=== PATIENT | female | born 1970 | race Caucasian/White ===

== ENCOUNTER 2016-08-28 10:42 | Outpatient (CLI) | payer MEDICAID, OTHER | END 2016-08-28 10:43 | disposition home or self-care (01) | DX: B18.2 Chronic viral hepatitis C (principal) ==

== ENCOUNTER 2017-07-08 17:27 | Outpatient (CLI) | payer OTHER ==
--- NOTE | 2017-07-09 12:04 | Ultrasound Report ---
PELVIC ULTRASOUND: 07/08/2017 CLINICAL INDICATION: Excessive menstruation. TECHNIQUE: Transabdominal pelvic ultrasound performed for global evaluation. Transvaginal pelvic ultrasound performed for detailed evaluation. Real-time scanning performed and static images obtained. FINDINGS: The uterus is anteverted, measuring 11.1 x 6.6 x 4.9 cm. The endometrium measures 14 mm, and there is an echogenic nodule in the fundal endometrium, measuring 1.9 x 0.8 cm, suspicious for a fundal polyp. A 2.8 x 2.5 x 2.3 cm leiomyoma is noted in the left fundal subserosal myometrium. The right ovary measures 3.5 x 2.3 x 2.1 cm, and demonstrates follicles. The left ovary measures 2.6 x 2.2 x 1.7 cm, and demonstrates follicles. No free fluid is present. IMPRESSION: 1. LIKELY 1.9 CM FUNDAL ENDOMETRIAL POLYP. 2. A 2.8 CM LEFT SUBSEROSAL LEIOMYOMA. TD: 07/09/2017 12:03
== END 2017-07-08 17:28 | disposition home or self-care (01) ==
LOC: DI 17:27
PROVIDERS: ATTEND Internal Medicine
DX: D26.1 Other benign neoplasm of corpus uteri (principal); D25.2 Subserosal leiomyoma of uterus
CPT/HCPCS: 76830; 76856

== ENCOUNTER 2017-07-09 09:03 | Outpatient (CLI) | payer OTHER ==
[2017-07-09 17:44] LABS: BASOPHILS # (AUTO) 0.1 10^3/uL (0.0-0.1); BASOPHILS % (AUTO) 0.9 %; EOSINOPHILS # (AUTO) 0.3 10^3/uL (0.0-0.7); EOSINOPHILS % (AUTO) 3.4 %; LYMPHOCYTES # (AUTO) 2.6 10^3/uL (1.5-3.5); LYMPHOCYTES % (AUTO) 26.4 %; MEAN CORPUSCULAR HEMOGLOBIN 27.5 pg (27.0-31.0); MEAN CORPUSCULAR HGB CONC 32.7 g/dL (32.0-36.0); MEAN CORPUSCULAR VOLUME 84.2 fL (81.0-99.0); MEAN PLATELET VOLUME 9.6 fL (7.9-10.8); MONOCYTES # (AUTO) 0.7 10^3/uL (0.0-1.0); MONOCYTES % (AUTO) 6.9 %; NEUTROPHILS # (AUTO) 6.2 10^3/uL (1.5-6.6); NEUTROPHILS % (AUTO) 62.4 %; PLT - PLATELET COUNT 246 10^3/uL (130-450); RED BLOOD COUNT 4.74 10^6/uL (4.20-5.40); RED CELL DISTRIBUTION WIDTH 15.9 % (12.0-15.0); WHITE BLOOD COUNT 9.9 x10^3/uL (4.8-10.8)
[2017-07-09 18:26] LABS: ALBUMIN 3.9 g/dL (3.2-5.5); ALBUMIN/GLOBULIN RATIO 1.4 (1.0-2.2); ALKALINE PHOSPHATASE 84 IU/L (42-121); ALT ALANINE AMINOTRANSFERASE 13 IU/L (10-60); AST ASPARTATE AMINOTRANSFERASE 17 IU/L (10-42); BILIRUBIN,TOTAL 0.2 mg/dL (0.2-1.0); BUN - BLOOD UREA NITROGEN 13 mg/dL (6-20); CALCIUM 8.7 mg/dL (8.5-10.3); CARBON DIOXIDE - CO2 22 mmol/L (21-32); CHLORIDE 108 mmol/L (101-111); CHOL/HDL RATIO 4.5 (<4.4); CHOLESTEROL 184 mg/dL; CREATININE 0.7 mg/dL (0.4-1.0); GFR - MDRD 89 (>89); GLUCOSE 91 mg/dL (70-100); HDL CHOLESTEROL 41 mg/dL; LDL CHOLESTEROL,CALCULATED 110 mg/dL; LDL/HDL RATIO 2.7 (<4.4); SODIUM 135 mmol/L (135-145); TOTAL PROTEIN 6.7 g/dL (6.7-8.2); VLDL CHOLESTEROL 33 mg/dL
[2017-07-09 18:53] LABS: HB2 TOTAL 14.3 g/dL; HEMOGLOBIN A1C 0.53 g/dL; HEMOGLOBIN A1C % 5.5 % (4.6-6.2)
== END 2017-07-09 09:04 | disposition home or self-care (01) ==
LOC: LAB.F 09:03
PROVIDERS: ATTEND Internal Medicine
DX: Z83.3 Family history of diabetes mellitus (principal); N92.0 Excessive and frequent menstruation with regular cycle; N64.4 Mastodynia; Z13.6 Encounter for screening for cardiovascular disorders
CPT/HCPCS: 36415; 80053; 80061; 83036; 83721; 84443; 85025

== ENCOUNTER 2017-07-21 08:36 | Outpatient (CLI) | payer OTHER ==
--- NOTE | 2017-07-21 15:28 | Mammography Report ---
DIGITAL DIAGNOSTIC BILATERAL MAMMOGRAM: 07/21/2017 CLINICAL INDICATION: Diffuse bilateral breast pain. TECHNIQUE: Bilateral CC, MLO, true lateral views. COMPARISON: 08/06/2015, 12/16/2010, 06/03/2010, 05/21/2010, 04/28/2010. FINDINGS: The breasts again demonstrate heterogeneously dense fibroglandular parenchyma bilaterally. Coarse, typically benign calcifications are present. Biopsy changes in the right upper central posterior breast are stable. No suspicious masses, clustered microcalcifications, or regions of architectural distortion are identified. IMPRESSION: BENIGN FINDINGS. RECOMMENDATION: ROUTINE ANNUAL SCREENING UNLESS OTHERWISE CLINICALLY INDICATED. BIRADS CATEGORY 2-BENIGN FINDINGS. STANDARD QUALIFYING STATEMENTS: 1. This examination was reviewed with the aid of Computer-Aided Detection (CAD). 2. A negative or benign imaging report should not delay biopsy if clinically suspicious findings are present. Consider surgical consultation if warranted. More than 5% of cancers are not identified by imaging. 3. Dense breasts may obscure an underlying neoplasm. TD: 07/21/2017 15:27
== END 2017-07-21 08:37 | disposition home or self-care (01) ==
LOC: DI 08:36
PROVIDERS: ATTEND Internal Medicine
DX: N64.4 Mastodynia (principal); N92.1 Excessive and frequent menstruation with irregular cycle
CPT/HCPCS: 77066; 87491; 87591

== ENCOUNTER 2017-07-21 16:43 | Outpatient (CLI) | payer OTHER | END 2017-07-21 16:44 | disposition home or self-care (01) | LOC: LAB.R 16:43 | PROVIDERS: ATTEND Registered Nurse | DX: N92.1 Excessive and frequent menstruation with irregular cycle (principal) | CPT/HCPCS: 87491; 87591 ==

== ENCOUNTER 2017-08-06 09:19 | Outpatient (CLI) | payer OTHER ==
[2017-08-06 17:16] LABS: BILIRUBIN,URINE NEGATIVE (NEGATIVE); GLUCOSE, URINE (UA) NEGATIVE (NEGATIVE); KETONES,URINE (UA) NEGATIVE (NEGATIVE); LEUKOCYTE ESTERASE, URINE NEGATIVE (NEGATIVE); NITRITE,URINE NEGATIVE (NEGATIVE); OCCULT BLOOD,URINE MODERATE (NEGATIVE); PROTEIN,URINE NEGATIVE (NEGATIVE); UROBILINOGEN,URINE 0.2 (NORMAL) E.U./dL (NORMAL)
[2017-08-06 17:26] LABS: CLARITY,URINE CLEAR (CLEAR)
[2017-08-06 17:37] LABS: BACTERIA,URINE Few /HPF (None Seen); RBC,URINE 0-5 /HPF (0-5); SQUAMOUS EPITHELIAL CELL,UR MANY Squamous (<= Few)
== END 2017-08-06 09:20 | disposition home or self-care (01) ==
LOC: LAB.F 09:19
PROVIDERS: ATTEND Obstetrics & Gynecology
DX: N92.1 Excessive and frequent menstruation with irregular cycle (principal); N39.3 Stress incontinence (female) (male)
CPT/HCPCS: 81001

== ENCOUNTER 2017-09-06 10:25 | Outpatient (CLI) | payer OTHER ==
[2017-09-06 11:08] LABS: CALCIUM 8.9 mg/dL (8.5-10.3); CREATININE 0.8 mg/dL (0.4-1.0)
[2017-09-06 11:14] LABS: BASOPHILS # (AUTO) 0.1 10^3/uL (0.0-0.1); BASOPHILS % (AUTO) 1.4 %; EOSINOPHILS # (AUTO) 0.4 10^3/uL (0.0-0.7); EOSINOPHILS % (AUTO) 4.9 %; HGB - HEMOGLOBIN 13.7 g/dL (12.0-16.0); LYMPHOCYTES # (AUTO) 2.7 10^3/uL (1.5-3.5); LYMPHOCYTES % (AUTO) 34.7 %; MEAN CORPUSCULAR HEMOGLOBIN 28.6 pg (27.0-31.0); MEAN CORPUSCULAR HGB CONC 33.7 g/dL (32.0-36.0); MEAN CORPUSCULAR VOLUME 84.8 fL (81.0-99.0); MEAN PLATELET VOLUME 8.7 fL (7.9-10.8); MONOCYTES # (AUTO) 0.6 10^3/uL (0.0-1.0); MONOCYTES % (AUTO) 7.4 %; NEUTROPHILS # (AUTO) 4.1 10^3/uL (1.5-6.6); NEUTROPHILS % (AUTO) 51.6 %; PLT - PLATELET COUNT 252 10^3/uL (130-450); RED CELL DISTRIBUTION WIDTH 15.2 % (12.0-15.0); WHITE BLOOD COUNT 7.9 x10^3/uL (4.8-10.8)
== END 2017-09-06 10:26 | disposition home or self-care (01) ==
LOC: LAB 10:25
PROVIDERS: ATTEND Obstetrics & Gynecology
DX: Z01.812 Encounter for preprocedural laboratory examination (principal); N92.0 Excessive and frequent menstruation with regular cycle; D25.1 Intramural leiomyoma of uterus; N39.3 Stress incontinence (female) (male)
CPT/HCPCS: 36415; 80048; 85025; 86850; 86900; 86901

== ENCOUNTER 2017-09-08 06:11 | Day surgery (SDC) | payer OTHER ==
--- NOTE | 2017-09-07 09:19 | PREOP HISTORY & PHYSICAL ---
DATE OF SERVICE: 09/03/2017 Physician: Erasmo Gaxiola MD PREOPERATIVE H AND P on 09/03/2017 FOR ANTICIPATED DATE OF PROCEDURE: 09/08/2017 IDENTIFICATION: Patient is a 47-year-old G5, P3, AB2 female whose last menstrual period started on 08/05/2017, the time of her endometrial biopsy. CHIEF COMPLAINT: Vaginal bleeding, painful periods, as well as stress urinary incontinence. HISTORY OF PRESENT ILLNESS: Patient states over the last 3 to 5 years, she has had difficulty with very heavy menstrual cycles. She states these are regular and have come in a predictable fashion. She flows for 7 days; however, she will have 4 days in which she bleeds very heavy. She will need to change a pad or a tampon an hour to hour and a half basis. She will use both pads and tampons while she was doing her work. She will occasionally sleep with a towel because of her breakthrough bleeding. She may be up anywhere from 2-3 times per night. She has a history of anemia from her bleeding; however, she was never having transfusions. Currently not taking iron. She does give a history of having a fibroid uterus. She has had an endometrial biopsy, which has been noted to be benign. She also complains of pain with her cycles. She states this is anywhere from roughly 5/10. She states it makes her somewhat irritable. She does use occasional Midol for her pain. She also complains of stress urinary incontinence when she sneezes, laughs and coughs. It also occurs when she bends over. She uses a pad as well as a liner on a daily basis to protect her from this. She has had a tubal ligation in the past. She is currently being seen by Dr. Erasmo Meraz and is scheduled for a laparoscopically assisted vaginal hysterectomy with bilateral salpingectomy, as well as sling procedure. MEDICAL HISTORY: Patient denies any hypertensive, diabetic, or cardiac disease. MEDICATIONS: She is currently not taking any medications. Does do occasional Tylenol. PAST SURGICAL HISTORY: Positive for tubal ligation. She has also had a right breast lump removed in 1991, as well as tonsillectomy and adenoidectomy as a child. She has had 2 D and Cs in the past. ALLERGIES: SULFA, WHICH CAUSES FEVER. HABITS: Patient smokes 10 cigarettes per day. Drinks alcohol only occasionally. SOCIAL HISTORY: Patient lives with a partner for the last 5 years. 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 FAMILY HISTORY: Strongly positive for diabetes both in her maternal grandmother, as well as a cousin. She has a paternal uncle also with diabetes. She has a maternal grandfather with heart attack as well as emphysema, who was a heavy smoker. She denies any family history of breast or ovarian cancer at this time. REVIEW OF SYSTEMS: Negative for anything with the exception of a chronic smoker's cough. PHYSICAL EXAMINATION GENERAL: Patient is a well-developed, well-nourished white female. She is in no acute distress at this time. VITAL SIGNS: Blood pressure is 120/80. She has a BMI of 31.6. HEENT: Pupils are equal, round. Extraocular muscles are intact. Thyroid is not palpably enlarged. Mouth is clear. HEART: Regular rate and rhythm without murmurs. LUNGS: Lung colon are clear without rales or wheezes. BACK: No spinal or CVA tenderness noted. ABDOMEN: Mildly corpulent. There is evidence of a previous laparoscopic scar from her tubal ligation. There was no rebound or any other masses. PELVIC: Exam was previously performed by Dr. Erasmo Meraz. He felt that the uterus felt somewhat globular in its configuration. IMPRESSION 1. A 47-year-old G5, P3 female with a 5-year history of menorrhagia and dysmenorrhea. 2. She also has stress urinary incontinence, which affects her life. PLAN: At this particular time, the patient is scheduled for a laparoscopically assisted vaginal hysterectomy with bilateral salpingectomy and suburethral sling. Risks and benefits were explained to the patient including those, but not limited to bleeding, infection, injury to pelvic organs, which include the uterus, tubes, ovaries, bowel, bladder, and ureters. She is aware of the potential of DVT with PE as well as postoperative adhesions, which could cause pain as well as bowel obstruction. She is also aware that she may need to go home with a Gurrola catheter in place because of her sling. She was also aware of the possibility of needing to do an open procedure if the laparoscopy is not sufficient to complete her operation. TD: 09/03/2017 20:42
[2017-09-08] MEDS ORDERED: ceFAZolin 2 GM/50 ML 2 GM/50 ML BAG IV ONE (06:34)
[2017-09-08 06:39] VITALS: BP 133/85
[2017-09-08] MEDS ORDERED: SCOPOLAMINE PATCH TOP ONE (06:41)
[2017-09-08] MEDS ORDERED: LACTATED RINGERS 1,000 ML IV ONE ×3 (06:54→11:59)
[2017-09-08] MEDS ORDERED: BUPIVACAINE 0.5%-EPI 1:200000 PF 10 ML VIAL ONE ×2 (07:42→09:55)
[2017-09-08] MEDS ORDERED: GLYCOPYRROLATE 1 MG/5 ML VIAL IVP ONE (08:30)
[2017-09-08] MEDS ORDERED: DEXAMETHASONE 4 MG/ML VIAL IVP ONE (08:30)
[2017-09-08] MEDS ORDERED: ROCURONIUM 50 MG/5 ML VIAL IVP ONE (08:30)
[2017-09-08] MEDS ORDERED: ACETAMINOPHEN 1,000 MG/100 ML 100 ML IV ONE ×2 (08:30→08:38)
[2017-09-08] MEDS ORDERED: KETOROLAC 30 MG/ML VIAL IVP ONE (08:30)
[2017-09-08] MEDS ORDERED: PHENYLEPHRINE 10 MG/ML VIAL IV ONE (08:30)
[2017-09-08] MEDS ORDERED: fentaNYL 250 MCG/5 ML VIAL IVP ONE (08:30)
[2017-09-08] MEDS ORDERED: ONDANSETRON 4 MG/2 ML VIAL IVP ONE (08:30)
[2017-09-08] MEDS ORDERED: SUCCINYLCHOLINE 200 MG/10 ML VIAL IVP ONE (08:30)
[2017-09-08] MEDS ORDERED: MIDAZOLAM 2 MG/2 ML VIAL IVP ONE (08:30)
[2017-09-08] MEDS ORDERED: LIDOCAINE-MPF 2% 5 ML VIAL IM ONE (08:30)
[2017-09-08] MEDS ORDERED: PROPOFOL 200 MG/20 ML VIAL IVP ONE (08:30)
[2017-09-08] MEDS ORDERED: BUPIVACAINE 0.5%-EPI 1:200000 PF 30 ML VIAL SUBQ ONE (08:37)
--- NOTE | 2017-09-08 10:20 | OPERATIVE REPORT ---
Operative Report - General Procedure Date: 09/08/17 Planned Procedure: Laparoscopic assisted vaginal hysterectomy; bilateral salpingectomy; subure Pre-Op Diagnosis: Uterine fibroids associated with abnormal bleeding and pain; stress urinary Procedure Performed: Laparoscopic assisted vaginal hysterectomy; suburethral sling; right salpingo- oophorectomy; left salpingectomy Post Op Diagnosis: Growth on right ovary; same as above - Procedure Note Primary Surgeon: Erasmo Meraz MD Secondary Surgeon: Erasmo Gaxiola MD Anesthesia Provider: Macario Dowell, certified nurse pediatric dental assistant Anesthesia Technique: General ET tube Pathology: Uterus, tubes, right ovary IV Fluids (mL): 1,000 Estimated Blood Loss (mL): 20 Urine Output (mL): 250 Drain/Tube Type: Other (Gurrola catheter) Complications: None
--- NOTE | 2017-09-08 11:37 | OPERATIVE REPORT ---
DATE OF SERVICE: 09/08/2017 Physician: Erasmo Meraz MD PREOPERATIVE DIAGNOSES 1. Uterine leiomyomata associated with abnormal bleeding and pain. 2. Stress urinary incontinence. POSTOPERATIVE DIAGNOSES 1. Uterine leiomyomata associated with abnormal bleeding and pain. 2. Stress urinary incontinence. 3. Exophytic growth on right ovary. Await pathology. 4. Cystitis cystica. PROCEDURES 1. Laparoscopic-assisted vaginal hysterectomy. 2. Suburethral sling (MiniArc). 3. Right salpingo-oophorectomy. 4. Left salpingectomy. 5. Modified Lerma. SURGEON: Erasmo Meraz MD, FACOG, FICS RESTAURANT MAINTENANCE TECHNICIAN: Earsmo Gaxiola MD, FACOG ANESTHESIA: Edwardo Thomas and Macario Garcia, certified nurse shrimping boat captain. ANESTHESIA TYPE: General with ET tube. PATHOLOGY: Uterus, tubes, and ovaries sent. INTRAVENOUS FLUIDS: Approximately 1000. ESTIMATED BLOOD LOSS: 20 mL or less. URINE OUTPUT: Approximately 250, clear urine in the tube. COMPLICATIONS: None. FINDINGS: Exam under anesthesia finds a bulbous cervix with retroverted, retroflexed enlarged uterus sounding to about 8 cm size. Laparoscopic view confirms the same. The left ovary has multiple simple cysts. Right ovary has a simple cyst plus an exophytic solid nodule. Nodule was not thought to be cancerous, but prompted right oophorectomy. Both tubes appeared to be normal. The uterus was bulky with fibroid growth apparent. Cystoscopy confirms right and left ureter open and we can see sling effect at mid urethra on urethroscopy. There was a thorough inspection of the bladder since she was a smoker. There was cystitis cystica, but no evidence of tumor. Prior to the procedure, I met her and her and explained the diagnosis as the indications for the planned procedures. The planned procedures were vaginal hysterectomy with bilateral salpingectomy and suburethral sling. The relative mechanics and intended benefits were first explained. She understands that hysterectomy will most surely remedy her bleeding, but may not remedy all components of pelvic pain. With the suburethral sling, the mesh material was explained as well as success rate was quoted to be around 90% . She understands all surgery carries the risk of hemorrhage, transfusion, infection, damage to adjacent viscera and, in the case of artificial sling, tissue erosion. All questions were answered and informed consent was signed. TECHNIQUE: The awake patient was brought to the operating room and placed in the supine position for administration of anesthesia. She was uneventfully induced and intubated. She then was moved to the low dorsal lithotomy position on mobile stirrups. She was prepped and draped in the customary sterile fashion. A timeout briefing was done per protocol. A clamshell speculum was inserted and a HUMI uterine manipulator was inserted. The HUMI insertion was somewhat difficult due to the distortion of the inner cavity secondary to her fibroids. Gurrola catheter was placed. A small incision was placed under the umbilical skin fold and the 5 mm Visiport trocar inserted into the abdominal cavity uneventfully. The abdomen was then insufflated with CO2 under 12 mm of gas. Right and left operating ports were placed in the lower quadrants. The abdomen was assessed. Reference photos. Starting on the left-hand side, the tube was tented away from the ovary and superiorly in a medial direction. The tubal mesentery then was desiccated and divided in a serial fashion. Next, the uteroovarian ligament was desiccated and divided. Following that, the round ligament was desiccated and divided. The flaps of the broad ligament were desiccated and divided, and the uterine vessels skeletonized. We developed the anterior bladder fold with LigaSure. The uterine vessels then were doubly desiccated and divided. There was a small bleeder underneath the bladder flap on the left-hand side that was desiccated. Next, on inspection of the right-hand side, it was decided that it was safest to sacrifice the ovary. The right ovarian vessels and infundibulopelvic ligament were desiccated and divided. Next, the round ligament was desiccated and divided. LigaSure was then used to develop the bladder flap. We then converted to the vaginal phase. All gas was removed. The patient's legs were then placed into the high dorsal lithotomy position. Weighted speculum was placed. The cervix was injected with small aliquots of Marcaine with epinephrine to form a liquid tourniquet. Using Bovie pencil, the cervix was circumscribed. The vaginal mucosa was advanced back up to reveal the uterosacral ligaments. The uterosacral ligaments were clamped, cut, and transfixed with 0 Vicryl. We advanced superiorly to the region of the laparoscopic dissection. At this point, the uterus was uneventfully slid through the colpotomy and sent to pathology. Reference photo of the uterus. The pelvic peritoneum was then pursestringed with 0 chromic. The uterosacral ligaments were then sutured into the vaginal cuff corners. In turn the uterosacral ligaments were plicated together in the midline to perform a modified Lerma's. Vaginal mucosa then was closed with a running stitch of 0 chromic. The abdomen was then reinsufflated with CO2 gas and inspected. All operative sites were inspected and found to be hemostatically secure. Reference photos. At this point, we moved towards sling. The Gurrola was deflated and removed. At mid urethra and towards the bladder neck, a 1.5 cm incision was made under the urethra. Then, using combination of blunt and sharp dissection, a pocket was formed on either side tracking upward at a 45-degree angle towards the internal margin of the obturator internus. Then, the MiniArc was brought to the field and a loaded. Rechecked all landmarks: Pubis, limits of the obturator foramen, and pubic bone. The MiniArc applicator then was guided through the pocket and behind the pubic bone at the spot at the medial margin of the obturator internus. It was then driven into the obturator internus and an excellent application of the dart was felt. This process then was repeated on the right-hand side. At the end, the sling was without tension and in contact the urethra without compression. MiniArc applicator was then removed. We performed cystoscopy that ensured there was a sling affect, but it was not over aggressive. Ureters were confirmed to be functional, and the entire interior of the bladder assessed. At this point, redundant vaginal mucosa was trimmed. The colpotomy wound was closed with a running stitch of 2-0 Vicryl. After laparoscopy was done, all trocars were removed. Skin was closed with interrupted subcuticular stitches of 4-0 Monocryl and dressed with Dermabond. The patient was uneventfully awakened from general anesthesia and extubated. She went to the recovery room in good condition. MEDICATIONS: Ancef 2 grams. TD: 09/08/2017 11:36 [facility]NERSMac[facility]
[2017-09-08] MEDS ORDERED: KETOROLAC 30 MG/ML VIAL IVP SCH (12:00)
[2017-09-08] MEDS ORDERED: HYDROmorphone 1 MG/ML CARPUJECT IVP PRN (12:01)
[2017-09-08] MEDS ORDERED: ONDANSETRON 4 MG/2 ML VIAL IVP PRN (12:01)
[2017-09-08] MEDS: LACTATED RINGERS 1,000 ML IV SCH ×2 (14:58→20:58)
[2017-09-08] MEDS: oxyCOD/ACETAMIN 5 MG/325 MG TABLET PO PRN (20:26)
[2017-09-09] MEDS: oxyCOD/ACETAMIN 5 MG/325 MG TABLET PO PRN ×2 (02:49→08:03)
[2017-09-09] MEDS: LACTATED RINGERS 1,000 ML IV SCH (05:10)
[2017-09-09] MEDS ORDERED: SODIUM CHLORIDE FLUSH 0.9% 10 ML SYRINGE ONE ×2 (08:10→08:19)
--- NOTE | 2017-09-09 08:53 | DISCHARGE SUMMARY ---
Physician: Erasmo Meraz MD DATE OF ADMISSION: 09/08/2017 DATE OF DISCHARGE: 09/09/2017 EXTENDED SAME DAY SURGERY STAY PROCEDURE: Laparoscopic assisted vaginal hysterectomy; MiniArc suburethral sling; bilateral salpingectomy; right oophorectomy; cystoscopy; modified Lerma culdoplasty. COMPLICATIONS: None. DIAGNOSIS: Severe dysmenorrhea with abnormal uterine bleeding; uterine leiomyoma; stress urinary incontinence. HISTORY: The patient states that she has had 3-5 years of painful and heavy menses. Flow exceeds 7 days, 4 of which are with clots. The bleeding is quite severe and disruptive, reference H and P. She has a history of anemia. Additionally, she reports stress urinary incontinence and uses a pad to protect her underclothing. The patient had an informed consent session and understands the risks and benefits of both the LAVH and sling. She wishes to conserve her ovaries if possible. HOSPITAL COURSE: The patient was admitted to same day surgery for LAVH and sling procedure, which were completed uneventfully. However, during the inspection of the abdomen, there was an exophytic growths seen on the right ovary, prompting its removal, as well as both tubes. A modified Lerma procedure was done to provide extra cuff support and postoperative cystoscopy confirmed no bladder incursions and free flow of urine from both ureters. Blood loss was low and the surgery was uncomplicated. The patient went to the recovery room in stable condition. However, she remained nauseous and painful. She was admitted for extended stay. During the extended stay, she accomplished timed voiding bladder training. Most of her residuals were around 100. She was given voiding instructions prior to discharge that included avoidance of Valsalva voiding pattern and q. 3 hour voiding attempts. Warning sign and callback instructions were given. The patient was seen on the morning of discharge and was in good spirits, eating breakfast and reporting no problems with micturition. DISCHARGE MEDICATIONS 1. Motrin 600 q.6 hours. 2. [place] 1 tab q.4 hours p.r.n. pain. 3. Colace 250 b.i.d. Followup will be in 2 weeks. TD: 09/09/2017 08:52
== END 2017-09-09 09:45 | disposition home or self-care (01) ==
LOC: SDS 06:11 → OBS 10:56 → SDS 09-09 09:45
PROVIDERS: ATTEND Obstetrics & Gynecology
PROC: 0UT7FZZ Resection of Bilateral Fallopian Tubes, Via Natural or Artificial Opening With Percutaneous Endoscopic Assistance (ICD-10-PCS; 2017-09-08)
PROC: 0TSD0ZZ Reposition Urethra, Open Approach (ICD-10-PCS; 2017-09-08)
PROC: 0UQF7ZZ Repair Cul-de-sac, Via Natural or Artificial Opening (ICD-10-PCS; 2017-09-08)
PROC: 0UT9FZZ Resection of Uterus, Via Natural or Artificial Opening With Percutaneous Endoscopic Assistance (ICD-10-PCS; principal; 2017-09-08 07:30)
PROC: 0UT0FZZ Resection of Right Ovary, Via Natural or Artificial Opening With Percutaneous Endoscopic Assistance (ICD-10-PCS; 2017-09-08 07:30)
DX: D25.1 Intramural leiomyoma of uterus (principal); N84.0 Polyp of corpus uteri; D27.0 Benign neoplasm of right ovary; N83.8 Other noninflammatory disorders of ovary, fallopian tube and broad ligament; N39.3 Stress incontinence (female) (male); N30.80 Other cystitis without hematuria; F17.210 Nicotine dependence, cigarettes, uncomplicated
CPT/HCPCS: 57288; 58552; A9270; C1771; J0131; J0330; J0690; J3010; J3490; J7120; 88307; 88311

== ENCOUNTER 2018-04-27 11:43 | Outpatient (CLI) | payer BC | END 2018-04-27 11:44 | disposition home or self-care (01) | LOC: LAB 11:43 | PROVIDERS: ATTEND Registered Nurse | DX: J20.9 Acute bronchitis, unspecified (principal) | CPT/HCPCS: 36415; 81599; 86480 ==

== ENCOUNTER 2018-04-30 10:56 | Outpatient (CLI) | payer BC ==
--- NOTE | 2018-05-01 00:56 | XRAY Report ---
Reason: BRONCHITIS ACUTE WITH BRONCHOSPASM Procedure Date: 04/30/2018 Accession Number: [id number] / [id number] Procedure: XR - Chest 2 View X-Ray CPT Code: 73667 FULL RESULT: EXAM: CHEST RADIOGRAPHY EXAM DATE: 04/30/2018 11:05 AM. CLINICAL HISTORY: Acute bronchitis with bronchospasm. COMPARISON: None. TECHNIQUE: 2 views. FINDINGS: Lungs/Pleura: No focal opacities evident. No pleural effusion. No pneumothorax. Normal volumes. Mediastinum: Heart and mediastinal contours are unremarkable. Other: No bony abnormality noted. IMPRESSION: Normal 2-view chest radiography. RADIA
== END 2018-04-30 10:57 | disposition home or self-care (01) ==
LOC: DI 10:56
PROVIDERS: ATTEND Registered Nurse
DX: J20.9 Acute bronchitis, unspecified (principal)
CPT/HCPCS: 71046

== ENCOUNTER 2020-03-08 08:03 | Outpatient (CLI) | payer BC, MEDICAID ==
[2020-03-08 15:28] LABS: BASOPHILS # (AUTO) 0.1 10^3/uL (0.0-0.1); EOSINOPHILS # (AUTO) 0.3 10^3/uL (0.0-0.7); EOSINOPHILS % (AUTO) 3.4 %; HGB - HEMOGLOBIN 14.6 g/dL (12.0-16.0); LYMPHOCYTES # (AUTO) 2.1 10^3/uL (1.5-3.5); MEAN CORPUSCULAR HEMOGLOBIN 29.3 pg (27.0-31.0); MEAN CORPUSCULAR HGB CONC 32.6 g/dL (32.0-36.0); MEAN CORPUSCULAR VOLUME 89.8 fL (81.0-99.0); MEAN PLATELET VOLUME 11.4 fL (7.9-10.8); MONOCYTES # (AUTO) 0.7 10^3/uL (0.0-1.0); MONOCYTES % (AUTO) 8.8 %; NEUTROPHILS # (AUTO) 4.2 10^3/uL (1.5-6.6); NEUTROPHILS % (AUTO) 57.3 %; PLT - PLATELET COUNT 270 10^3/uL (130-450); RED BLOOD COUNT 4.99 10^6/uL (4.20-5.40); RED CELL DISTRIBUTION WIDTH 13.8 % (12.0-15.0); WHITE BLOOD COUNT 7.4 x10^3/uL (4.8-10.8)
[2020-03-08 15:53] LABS: ALBUMIN 4.4 g/dL (3.2-5.5); ALBUMIN/GLOBULIN RATIO 1.4 (1.0-2.2); ALKALINE PHOSPHATASE 117 IU/L (42-121); ALT ALANINE AMINOTRANSFERASE 21 IU/L (10-60); AST ASPARTATE AMINOTRANSFERASE 22 IU/L (10-42); BILIRUBIN,TOTAL 0.5 mg/dL (0.2-1.0); BUN - BLOOD UREA NITROGEN 17 mg/dL (6-20); CALCIUM 9.3 mg/dL (8.5-10.3); CARBON DIOXIDE - CO2 23 mmol/L (21-32); CHLORIDE 107 mmol/L (101-111); CHOL/HDL RATIO 4.5 (<4.4); CHOLESTEROL 219 mg/dL; CREATININE 0.7 mg/dL (0.4-1.0); GLUCOSE 110 mg/dL (70-100); HDL CHOLESTEROL 49 mg/dL; LDL CHOLESTEROL,CALCULATED 137 mg/dL; LDL/HDL RATIO 2.8 (<4.4); SODIUM 138 mmol/L (135-145); TOTAL PROTEIN 7.5 g/dL (6.7-8.2); VLDL CHOLESTEROL 33 mg/dL
== END 2020-03-08 08:04 | disposition home or self-care (01) ==
LOC: LAB.S 08:03
PROVIDERS: ATTEND Family Medicine
DX: R00.2 Palpitations (principal); Z12.11 Encounter for screening for malignant neoplasm of colon
CPT/HCPCS: 36415; 80053; 80061; 82274; 83721; 84443; 85025

== ENCOUNTER 2020-08-21 09:38 | Outpatient (CLI) | payer MEDICAID ==
--- NOTE | 2020-08-22 07:45 | Mammography Report ---
BILATERAL DIGITAL SCREENING MAMMOGRAM 3D/2D: 08/21/2020 CLINICAL: Routine screening. Family history of breast cancer. Comparison is made to exams dated: 07/21/2017 mammogram, 08/06/2015 mammogram, and 12/16/2010 mammogram - [facility]. There are scattered fibroglandular elements in both breasts. No significant masses, calcifications, or other findings are seen in either breast. There has been no significant interval change. IMPRESSION: NEGATIVE There is no mammographic evidence of malignancy. A 1 year screening mammogram is recommended. This exam was interpreted at Station ID: [id number]. NOTE: For mammograms, a report in lay terms will be sent to the patient. Approximately 15% of breast malignancies will not be visualized mammographically. In the management of a palpable breast mass, a negative mammogram must not discourage biopsy of a clinically suspicious lesion. Electronically Signed By: Akin Dockery M.D., jr/stephrad:08/21/2020 16:26:28 ACR BI-RADS Category 1: Negative 3341F PARENCHYMAL PATTERN: (A) - The breast(s) demonstrate(s) scattered fibroglandular densities. BI-RADS CATEGORY: (1) - 1 RECOMMENDATION: (ANNUAL) - Recommend routine annual screening mammography. [id number] 1 year screening LATERALITY: (B)
== END 2020-08-21 09:39 | disposition home or self-care (01) ==
LOC: DI.S 09:38
DX: Z12.31 Encounter for screening mammogram for malignant neoplasm of breast (principal); Z80.3 Family history of malignant neoplasm of breast

== ENCOUNTER 2022-03-26 08:00 | Outpatient (CLI) | payer MEDICAID ==
--- NOTE | 2022-03-26 12:10 | XRAY Report ---
PROCEDURE: Shoulder 3 View RT INDICATIONS: RIGHT SHOULDER pain TECHNIQUE: 4 views of the shoulder were acquired. COMPARISON: None. FINDINGS: Bones: No acute fractures or dislocations. No suspicious bony lesions. Visualized ribs appear inta ct. Mild acromioclavicular and glenohumeral joint degenerative changes. Soft tissues: No suspicious soft tissue calcifications. IMPRESSION: 1. No acute fracture or dislocation visualized. 2. Degenerative changes of the acromioclavicular and glenohumeral joints. Reviewed by: Ed Fischer MD on 03/26/2022 12:09 PM PDT Approved by: Ed Fischer MD on 03/26/2022 12:09 PM PDT Station ID: [id number]
== END 2022-03-26 23:59 | disposition home or self-care (01) ==
LOC: DI.WOS 08:00
PROVIDERS: ATTEND Physician Assistant Surgical
DX: M19.011 Primary osteoarthritis, right shoulder (principal)

== ENCOUNTER 2022-10-15 08:57 | Outpatient (CLI) | payer MEDICAID ==
--- NOTE | 2022-10-16 11:29 | Mammography Report ---
BILATERAL DIGITAL SCREENING MAMMOGRAM 3D/2D: 10/15/2022 CLINICAL: Routine screening. Comparison is made to exams dated: 08/21/2020 mammogram, 07/21/2017 mammogram, and 08/06/2015 mammogram - [facility]. Both breasts are heterogeneously dense, which may obscure small masses (category c / 51-75% glandular tissue). There is a biopsy clip in the right breast. No significant masses, calcifications, or other findings are seen in either breast. There has been no significant interval change. IMPRESSION: NEGATIVE There is no mammographic evidence of malignancy. A 1 year screening mammogram is recommended. Based on the Tyrer Cuzick model (a risk assessment model) the patients lifetime risk is 9.0% and her 10 year risk is 2.6%. According to the ACR, ACS, and NCCN guidelines, an annual breast MRI exam mark anthony g with mammogram is recommended if the patients lifetime risk is 20% or greater. This exam was interpreted at Station ID: [id number]. NOTE: For mammograms, a report in lay terms will be sent to the patient. Approximately 15% of breast malignancies will not be visualized mammographically. In the management of a palpable breast mass, a negative mammogram must not discourage biopsy of a clinically suspicious lesion. Electronically Signed By: Dang sharpe/valeria:10/15/2022 11:35:01 letter sent: No_Letter ACR BI-RADS Category 1: Negative 3341F PARENCHYMAL PATTERN: (D) - The breast(s) demonstrate(s) heterogeneously dense fibroglandular john stewart. BI-RADS CATEGORY: (1) - 1 Mammogram [id number] 1 year screening LATERALITY: (B)
== END 2022-10-15 08:58 | disposition home or self-care (01) ==
LOC: DI.S 08:57
DX: Z12.31 Encounter for screening mammogram for malignant neoplasm of breast (principal)

== ENCOUNTER 2023-04-15 07:00 | Outpatient (CLI) | payer MEDICAID ==
[2023-04-15 14:56] LABS: BILIRUBIN,URINE NEGATIVE (NEGATIVE); GLUCOSE, URINE (UA) NEGATIVE (NEGATIVE); KETONES,URINE (UA) NEGATIVE (NEGATIVE); LEUKOCYTE ESTERASE, URINE SMALL (NEGATIVE); NITRITE,URINE NEGATIVE (NEGATIVE); OCCULT BLOOD,URINE MODERATE (NEGATIVE); PROTEIN,URINE NEGATIVE (NEGATIVE); UROBILINOGEN,URINE 0.2 (NORMAL) E.U./dL (NORMAL)
[2023-04-15 15:18] LABS: CLARITY,URINE SL. CLOUDY (CLEAR); WBC,URINE >25 /HPF (0-5)
[2023-04-15 15:19] LABS: BACTERIA,URINE Few /HPF (None Seen); CRYSTALS,URINE 0-2 Calcium Oxalate /LPF; RBC,URINE 0-5 /HPF (0-5); SQUAMOUS EPITHELIAL CELL,UR RARE Squamous (<= Few); WBC CLUMPS,URINE PRESENT
== END 2023-04-15 23:59 | disposition home or self-care (01) ==
LOC: LAB.S 07:00
PROVIDERS: ATTEND Emergency Medicine
DX: R30.0 Dysuria (principal)
CPT/HCPCS: 81001; 87086; 87181

== ENCOUNTER 2023-05-01 10:47 | Outpatient (CLI) | payer MEDICAID ==
--- NOTE | 2023-05-02 18:43 | XRAY Report ---
PROCEDURE: Wrist 3 View RT INDICATIONS: RIGHT WRIST PAIN TECHNIQUE: 3 views of the wrist were acquired. COMPARISON: None. FINDINGS: Bones: No fractures or dislocations. No suspicious bony lesions. Soft tissues: No suspicious soft tissue calcifications or masses. IMPRESSION: No acute bony abnormality. If pain persists with conservative management, consider repeat radiographs in 10-14 days or cross-sectional imaging. Reviewed by: Che Spence MD on 05/02/2023 6:41 PM PST Approved by: Che Spence MD on 05/02/2023 6:41 PM PST Station ID: [id number]
== END 2023-05-01 10:48 | disposition home or self-care (01) ==
LOC: DI.S 10:47
PROVIDERS: ATTEND Registered Nurse
DX: M25.531 Pain in right wrist (principal)

== ENCOUNTER 2023-06-18 08:27 | Day surgery (SDC) | payer MEDICAID ==
[~2023-06-18 08:27] MED LIST: PROPOFOL 500 MG/50 ML 0 MG/0 ML VIAL ONE
[2023-06-18] MEDS ORDERED: LACTATED RINGERS 1,000 ML IV ONE ×2 (08:35→09:56)
[2023-06-18] MEDS ORDERED: ACETAMINOPHEN 1,000 MG/100 ML 1,000 MG/100 ML BAG IV ONE ×2 (08:40→08:42)
--- NOTE | 2023-06-18 09:03 | ANESTHESIA ---
Pre-Anesthesia VS, & Labs - Diagnosis screening - Procedure colonoscopy Vital Signs: Temp Pulse Resp BP Pulse Ox O2 Flow Rate 36.4 C L 111 H 17 157/97 H 94 06/18/23 08:35 06/18/23 08:35 06/18/23 08:35 06/18/23 08:35 06/18/23 08:35 Height: 4 ft 11 in Weight (kg): 83.5 kg Body Mass Index: 37.1 BMI Classification: Obese - NPO Other (colon prep, NPO >2hrs) - Is Patient ?: No Home Medications and Allergies No Known Home Medications 09/08/17 Allergies/Adverse Reactions: Allergies Allergy/AdvReac Type Severity Reaction Status Date / Time Sulfa (Sulfonamide Allergy Unknown Rash Verified 06/17/23 13:39 Antibiotics) Anes History & Medical History - Anesthetic History Anesthesia Complications: reports: No previous complications Family history of Anesthesia Complications: Denies Family history of Malignant Hyperthermia: Denies - Medical History Cardiovascular: reports: Hypertension, Arrhythmia, Other Pulmonary: reports: Other (smoker 43 yrs) Urinary: reports: None Neuro: reports: None Musculoskeletal: reports: None Endocrine/Autoimmune: reports: Other (trunchal obesity) Blood Disorders: reports: None Skin: reports: None Smoking Status: Heavy tobacco smoker Psychosocial: reports: Alcohol, Cannabis (pt reports she "smokes weed all day long, everyday") History of Cancer?: No - Surgical History Gynecologic: reports: Tubal ligation, Hysterectomy Exam General: Alert, Oriented x3, Cooperative Dental: WNL Mouth Openin Fingerbreadth Neck Mobility: Normal Mallampati classification: III Thyromental Distance: 4-6 cm Respiratory: Lungs clear Cardiovascular: Regular rate Plan Anesthesia Type: General, Total IV Consent for Procedure(s) Verified and Reviewed: Yes Code Status: Attempt Resuscitation ASA classification: 3-Severe systemic disease Is this case an emergency?: No
[2023-06-18] MEDS ORDERED: MIDAZOLAM 2 MG/2 ML VIAL ONE (09:06)
[2023-06-18] MEDS ORDERED: PROPOFOL 500 MG/50 ML 500 MG/50 ML VIAL ONE (09:08)
[2023-06-18] MEDS ORDERED: PROPOFOL 200 MG/20 ML VIAL IVP ONE (09:11)
[2023-06-18] MEDS ORDERED: ONDANSETRON 4 MG/2 ML VIAL ONE ×2 (09:12→09:14)
[2023-06-18] MEDS ORDERED: ONDANSETRON INJ 8 MG in SODIUM CHLORIDE 0.9% 50 ML IVP ONE (10:00)
[2023-06-18] MEDS ORDERED: ONDANSETRON 4 MG/2 ML VIAL IVP ONE (10:00)
[2023-06-18 10:41] VITALS: BP 117/82; O2SAT 94
--- NOTE | 2023-06-18 18:09 | ANESTHESIA POST OP EVALUATION ---
Anesthesia Post Eval - Post Anesthesia Eval Vitals: Last Vital Signs Temp 36.1 C L 06/18/23 09:56 Pulse 95 06/18/23 10:35 Resp 17 06/18/23 10:35 BP 117/82 H 06/18/23 10:35 Pulse Ox 94 06/18/23 10:35 O2 Flow Rate 0 06/18/23 09:16 CV Function Including HR & BP: Stable Pain Control: Satisfactory Nausea & Vomiting: Negative Mental Status: Baseline Respiratory Status: Airway Patent Hydration Status: Satisfactory Anesthesia Complications: None
== END 2023-06-18 08:28 | disposition home or self-care (01) ==
LOC: SDS 08:27
PROVIDERS: ATTEND Surgery
PROC: 0DBN8ZZ Excision of Sigmoid Colon, Via Natural or Artificial Opening Endoscopic (ICD-10-PCS; 2023-06-18)
PROC: 0DBL8ZZ Excision of Transverse Colon, Via Natural or Artificial Opening Endoscopic (ICD-10-PCS; principal; 2023-06-18 09:30)
DX: Z12.11 Encounter for screening for malignant neoplasm of colon (principal); D12.3 Benign neoplasm of transverse colon; D12.7 Benign neoplasm of rectosigmoid junction; K63.5 Polyp of colon; K57.30 Diverticulosis of large intestine without perforation or abscess without bleeding; E66.9 Obesity, unspecified; Z68.37 Body mass index [BMI] 37.0-37.9, adult; F17.210 Nicotine dependence, cigarettes, uncomplicated
CPT/HCPCS: 45380; 45385; J0131; J7120

== ENCOUNTER 2023-06-21 08:00 | Outpatient (CLI) | payer MEDICAID ==
--- NOTE | 2023-06-21 11:40 | XRAY Report ---
PROCEDURE: Wrist 3 View RT INDICATIONS: RIGHT WRIST PAIN TECHNIQUE: 4 views of the wrist were acquired. COMPARISON: 05/01/2023 FINDINGS: Bones: No acute or subacute fractures. There is a remote corticated ulnar styloid avulsion fracture. Position is normal. No suspicious bone lesions. Soft tissues: No suspicious soft tissue calcifications or masses. IMPRESSION: 1. No acute or subacute bony abnormality. 2. For further detail of tendons and ligaments, MR is recommended if clinically warranted. Reviewed by: Dang Craft MD on 06/21/2023 11:39 AM PST Approved by: Dang Craft MD on 06/21/2023 11:39 AM PST Station ID: [id number]
== END 2023-06-21 23:59 | disposition home or self-care (01) ==
LOC: DI.WOS 08:00
PROVIDERS: ATTEND Physician Assistant Surgical
DX: M25.531 Pain in right wrist (principal)

== ENCOUNTER 2023-11-23 08:49 | Outpatient (CLI) | payer MEDICAID ==
--- NOTE | 2023-11-24 08:39 | Mammography Report ---
BILATERAL DIGITAL SCREENING MAMMOGRAM 3D/2D: 11/23/2023 CLINICAL: Routine screening. Comparison is made to exams dated: 10/15/2022 mammogram, 08/21/2020 mammogram, and 07/21/2017 mammogram - [facility]. Both breasts are heterogeneously dense, which may obscure small masses (category c / 51-75% glandular tissue). There are benign calcifications in both breasts. There also is a biopsy clip in the right breast. No significant masses, calcifications, or other findings are seen in either breast. There has been no significant interval change. IMPRESSION: BENIGN There is no mammographic evidence of malignancy. A 1 year screening mammogram is recommended. Based on the Tyrer Cuzick model (a risk assessment model) the patient's lifetime risk is 8.9% and her 10 year risk is 2.7%. According to the ACR, ACS, and NCCN guidelines, an annual breast MRI exam mark anthony g with mammogram is recommended if the patient's lifetime risk is 20% or greater. This exam was interpreted at Station ID: [id number]. NOTE: For mammograms, a report in lay terms will be sent to the patient. Approximately 15% of breast malignancies will not be visualized mammographically. In the management of a palpable breast mass, a negative mammogram must not discourage biopsy of a clinically suspicious lesion. Electronically Signed By: Dang sharpe/valeria:11/23/2023 10:36:23 letter sent: No_Letter ACR BI-RADS Category 2: Benign Finding(s) 3342F PARENCHYMAL PATTERN: (D) - The breast(s) demonstrate(s) heterogeneously dense fibroglandular parheena stewart. BI-RADS CATEGORY: (2) - 2 RECOMMENDATION: (ANNUAL) - Recommend routine annual screening mammography. [id number] 1 year screening LATERALITY: (B)
== END 2023-11-23 08:50 | disposition home or self-care (01) ==
LOC: DI.S 08:49
PROVIDERS: ATTEND Registered Nurse
DX: Z12.31 Encounter for screening mammogram for malignant neoplasm of breast (principal); R92.333 Mammographic heterogeneous density, bilateral breasts